=== PATIENT | male | born 1965 | race Two or more races ===

== ENCOUNTER → 2016-10-27 | Outpatient (CLI) | payer BC, OTHER ==
[2016-10-27 09:39] LABS: BASOPHILS # (AUTO) 0.02 10*3/UL; BASOPHILS % (AUTO) 0.4 % (0-1); EOSINOPHILS # (AUTO) 0.04 10*3/UL; EOSINOPHILS % (AUTO) 0.9 % (0-8); HEMATOCRIT 46.1 % (42.0-52.0); HEMOGLOBIN 15.9 g/dL (14.0-18.0); LYMPHOCYTES # (AUTO) 1.48 10*3/uL; MEAN CORPUSCULAR HEMOGLOBIN 30.6 PG (27-31); MEAN CORPUSCULAR HGB CONC 34.5 g/dL (33-37); MEAN CORPUSCULAR VOLUME 88.7 FL (80-90); MONOCYTES # (AUTO) 0.44 10*3/UL (0.3-0.8); MONOCYTES % (AUTO) 9.5 % (5-15); NEUTROPHILS # (AUTO) 2.66 10*3/UL; NEUTROPHILS % (AUTO) 57.3 % (50-80)
[2016-10-27 09:45] LABS: PLATELET MORPHOLOGY COMMENT NORMAL MORPHOLOGY (NORM); RBC MORPHOLOGY COMMENT NORMAL MORPHOLOGY (NORM); WBC MORPHOLOGY COMMENT NORMAL MORPHOLOGY (NORM)
[2016-10-27 10:03] LABS: BLOOD UREA NITROGEN 17 mg/dL (7-22); BUN/CREATININE RATIO 18.88 (6-20); CALCIUM 8.8 mg/dL (8.7-10.7); EST GLOMERULAR FILTRATION > 60 (>60 ml/min/1.73m(2))
--- NOTE | 2016-10-27 10:13 | EKG ---
[address] [place] [address] [place] [address] Measurements Intervals [place] Rate: 54 P: 130 RI: 165 QRS: 99 QRSD: 110 T: 51 QT: 407 QTc: 392 Interpretive Statements SINUS BRADYCARDIA BORDERLINE RIGHT AXIS DEVIATION [QRS AXIS > 90] PROBABLE INFERIOR MYOCARDIAL INFARCTION [35 ms Q WAVE IN II/aVF], PROBABLY OLD Compared to ECG 12/18/2012 13:22:49 Sinus rhythm no longer present Myocardial infarct finding still present Electronically Signed On 10-30-16 10:05:58 MDT by Josh Louis MD [email or web address]
== END ==
LOC: LAB 09:25
PROVIDERS: ATTEND Orthopaedic Surgery Sports Medicine
DX: Z01.812 Encounter for preprocedural laboratory examination (principal); Z01.810 Encounter for preprocedural cardiovascular examination; M75.121 Complete rotator cuff tear or rupture of right shoulder, not specified as traumatic; R00.1 Bradycardia, unspecified
CPT/HCPCS: 36415; 80053; 85025; 85610; 85730; 93005; 93010

== ENCOUNTER 2016-11-17 10:45 | Emergency (ER) | payer BC, OTHER ==
--- NOTE | 2016-11-17 12:16 | PDOC ---
Abdomen/Flank HPI - General Chief Complaint: Abdomen Pain Stated Complaint: constipation post op Date Seen by Provider: 11/17/16 Time Seen by Provider: 10:45 Source: POSITIVE: Patient Exam Limitations: POSITIVE: No limitations Nurse's Notes Reviewed & Considered: Yes - History of Present Illness Initial Comments: The patient is a 51-year-old male who presents to the emergency department with constipation, rectal pain and pressure. He states that he underwent right shoulder surgery on Sunday of this week. He was taking hydrocodone for pain throughout the week as well as a stool softener. He has not however had a bowel movement since Sunday. This morning he developed a strong urge to have a bowel movement and attempted to do so however was unable. He feels a lot of pain and pressure in the rectum as well as some generalized lower abdominal pain. He last urinated earlier this morning. He denies any fevers or chills, nausea or vomiting or any other associated complaints. - Patient Home Medications Home Medications: Home Medications Amlodipine Besylate 5 mg PO DAILY 11/17/16 Cephalexin [Keflex] 500 mg PO QID 11/17/16 Ibuprofen 400 mg PO Q4H PRN 11/17/16 Oxycodone HCl/Acetaminophen [Percocet 7.5-325 Mg Tablet] 1 - 2 each PO Q4H PRN PRN MDD 6 11/17/16 Tamsulosin HCl [Flomax] 0.4 mg PO DAILY 11/17/16 - Patient Allergies Allergies/Adverse Reactions: Allergies Allergy/AdvReac Type Severity Reaction Status Date / Time No Known Allergies Allergy Verified 11/17/16 10:49 Past Medical History - heen HEENT History: Denies History Cardiovascular History: Denies History Respiratory History: Denies History Gastrointestinal History: Denies History Genitourinary History: Denies History Endocrine History: Denies History Musculoskeletal History: Other (please comment) (Left lower extremity pain) Prosthesis or Implant: No Additional Musculoskeletal History: Chronic back pain due to herniated disk Neurological History: Denies History Blood Disorders: Denies History Psychiatric History: Denies History Cancer History: Denies History History of MDRO: No Alcohol Use: Rarely Substance Use Type: None Previous Surgical History: Yes Type / Date of Surgery: VARICOSE VEIN STRIPPING RIGHT LEG Anesthesia Reactions: No Significant Family History: No pertinent family hx Past Medical History Reviewed: Reviewed - No Changes ROS - Limitations ROS Limitations: No Limitations Constitution: DENIES: Chills, Fever Cardiovascular: REPORTS: Denies Cardiac Symptoms Respiratory: REPORTS: Denies Resp Symptoms Neurological: REPORTS: Denies Neuro Symptoms Gastrointestinal: REPORTS: Abdominal Pain, Constipation. DENIES: Nausea, Vomitting Musculoskeletal: REPORTS: Other (His shoulder is actually doing well and he transition to ibuprofen for pain yesterday.) Genitourinary: REPORTS: Other (He states he did have some blood in his urine immediately postoperatively which seems to have cleared, he did have a catheter during the procedure) Eyes: REPORTS: Denies Symptoms ENT: REPORTS: Denies Symptoms Skin: DENIES: Rash Abdominal/Flank Pain PE - General Appearance General Appearance: POSITIVE: Alert, Cooperative, No Acute Distress - HEENT HEENT: POSITIVE: Head Inspection Nml - Respiratory Respiratory: POSITIVE: No Respiratory Distress, Breath Sounds Normal - Cardiovascular Cardiovascular: POSITIVE: Regular Rate and Rhythm, Heart Sounds Normal - Abdomen Abdomen: Soft: (All Quadrants), Normal Bowel Sounds: (All Quadrants), No Guarding: (All Quadrants), No Rebound: (All Quadrants), No Distention: (All Quadrants) Additional Abdominal Details: He does have some generalized lower abdominal tenderness more in the left lower quadrant, no guarding or rebound tenderness, no palpable mass, bedside ultrasound was used to evaluate his bladder and the bladder does have urinated however is not distended - Back Back: POSITIVE: Normal Inspection. NEGATIVE: CVA Tenderness (R), CVA Tenderness (L) - Skin Skin: POSITIVE: Intact, No Rash - Extremities Extremity: Normal ROM: (All Extremities), Normal Inspection: (All Extremities) Abdomen Progress - Patient's Progress MDM / ED Course: On arrival the patient appeared to be fairly uncomfortable secondary to rectal pain and pressure. Initial bedside ultrasound showed urine in the bladder with no bladder distention. The patient was subsequently changed into a gown. Rectal exam was performed revealing hard stool in the rectal vault. This was disimpacted alleviating the majority of the patient's pain and pressure. He still had some vague generalized lower abdominal pain. He attempted to have a bowel movement himself however was unsuccessful. I offered to try an enema here however the patient stated he would feel more comfortable doing this at home. He was subsequently given instructions to try a fleets enema at home as well as magnesium citrate. He is advised return to the emergency room if he develops increased pain, is unsuccessful in what he does, has continued abdominal pain after a bowel movement, develops urinary difficulty, any worsening or change in symptoms. He was advised to continue MiraLAX until his bowels are regular. - Consult Counseled: POSITIVE: Patient, RE: DX, RE: Need for F/U Patient Care Time - Estimated PCT Patient Care Time (In Minutes): 20 Vital Signs - VS Reviewed Vital Signs Reviewed: Yes (written documentation reviewed) Discharge Clinical Impression: Constipation, Fecal impaction, Abdominal pain Discharge Disposition: Discharged to Home Condition: Stable Patient Instructions Given at Discharge: Constipation (ED) Additional Instructions: There was hard stool in the rectum causing impaction which was partially alleviated here in the emergency department. Recommend trying a fleets enema when you return home. In addition recommend a bottle of magnesium citrate, take half of the bottle initially and repeat in 2 hours if no results. Return to the emergency room a few develop increased pain, are unsuccessful in develop increased rectal pain and pressure again, have difficulty urinating, fever or any other worsening. Would recommend using MiraLAX 17 g daily until bowels become regular, especially if continued use of pain medication. Follow-up with primary care in 3-5 days. Follow Up With: MACEY POSADA [Primary Care Provider] -
[2016-11-17 14:22] VITALS: RESP 18; TEMP 96
== END 2016-11-17 12:20 | disposition home or self-care (01) ==
LOC: ER 10:45
DX: K56.41 Fecal impaction (principal); R10.31 Right lower quadrant pain; R10.32 Left lower quadrant pain; K62.89 Other specified diseases of anus and rectum
CPT/HCPCS: 99282